=== PATIENT | female | born 1975 | race African-American/Black ===

== ENCOUNTER 2020-07-11 20:23 | Emergency (ER) | payer OTHER, SELFPAY ==
[2020-07-11 20:26] VITALS: BP 180/76; PULSE 103; RESP 18; TEMP 36.8; O2SAT 100
--- NOTE | 2020-07-11 20:37 | ED.GENADULT ---
HPI - General Adult General Chief complaint: Unspecified Stated complaint: painful breast lump Time Seen by Provider: 07/11/20 20:25 Source: patient Mode of arrival: ambulatory Limitations: no limitations History of Present Illness HPI narrative: Patient is a 45-year-old female who presents complaining of right breast pain x1 week. She reports mass to her right breast under the nipple, tender with palpation. Denies redness or drainage, denies drainage from nipple. She reports taking [id number] medications for pain without relief. MD complaint: Right breast pain Related Data Allergies Allergy/AdvReac Type Severity Reaction Status Date / Time codeine Allergy Unknown Hives / Verified 07/11/20 20:25 Red Face Review of Systems Review of Systems: Narrative: CONSTITUTIONAL: Denies fever, chills, or sweats. EYES: Denies visual changes, redness, or discharge. ENT: Denies rhinorrhea, congestion, sore throat, or otalgia. CARDIOVASCULAR: Denies chest pain, palpitations, or edema. RESPIRATORY: Denies cough or dyspnea. GASTROINTESTINAL: Denies abdominal pain, nausea, vomiting, or diarrhea. GENITOURINARY: Denies dysuria or hematuria. SKIN: Lump to right breast MUSCULOSKELETAL: Denies back pain, joint pain, or myalgia. NEUROLOGIC: Denies headache, numbness, dizziness, or weakness. PSYCHIATRIC: Denies anxiety or depression. PMFSH Past Medical History Medical History Asthma Bronchitis Cellulitis Pneumonia Surgical History Surgical History H/O: Family History Family History Other No significant family history Social History Social History (Updated 07/12/20 @ 10:35 by LELAND Duncan) Smoking status: Never smoker Alcohol intake: never Substance use: never Gender identity (if verbalized by the patient): Female Exam Narrative: Exam Narrative: GENERAL: Well-appearing, well-nourished, and in no acute distress. HEAD: Normocephalic, atraumatic. EYES: EOMI. No redness or drainage. ENT: Mucous membranes pink and moist. CHEST: No respiratory distress. HEART: Regular rate and rhythm. . MUSCULOSKELETAL: No bony tenderness. EXTREMITIES: Normal range of motion. No edema. SKIN: Palpable mass to right breast beneath nipple, tenderness patient, no discharge, erythema or edema noted NEURO: No focal deficits. Alert and oriented x3. Gait steady. PSYCH: Normal affect. No signs of depression or anxiety. Course Vital Signs Vital signs: Vital Signs Temperature 36.8 C 07/11/20 20:26 Pulse Rate 103 H 07/11/20 20:26 Respiratory Rate 18 07/11/20 20:26 Blood Pressure 180/76 H 07/11/20 20:26 Pulse Oximetry 100 07/11/20 20:26 Temperature 36.8 C 07/11/20 20:26 Pulse Rate 103 H 07/11/20 20:26 Respiratory Rate 18 07/11/20 20:26 Blood Pressure 180/76 H 07/11/20 20:26 Pulse Oximetry 100 07/11/20 20:26 Reviewed. Patient has been instructed to follow-up with her PCP regarding her blood pressure. Medical Decision Making MDM Narrative Medical decision making narrative: Patient has mass to right breast. Discussed with Dr. Jackson who also palpated mass. Patient to be referred to Dr. Lobato at this time, patient to take nSaids for pain. Patient is stable for discharge home with outpatient follow-up as discussed. Differential Diagnosis Differential Diagnosis: Breast mass, abscess, cellulitis, mastitis Vital Signs Vital Signs: Vital Signs Temperature 36.8 C 07/11/20 20:26 Pulse Rate 103 H 07/11/20 20:26 Respiratory Rate 18 07/11/20 20:26 Blood Pressure 180/76 H 07/11/20 20:26 Pulse Oximetry 100 07/11/20 20:26 Temperature 36.8 C 07/11/20 20:26 Pulse Rate 103 H 07/11/20 20:26 Respiratory Rate 18 07/11/20 20:26 Blood Pressure 180/76 H 07/11/20 20:26 Pulse Oximetry 100 07/11/20
== END 2020-07-11 21:11 | disposition home or self-care (01) ==
PROVIDERS: Emergency Provider Nurse Practitioner; PCP Nurse Practitioner Family
DX: N63.10 Unspecified lump in the right breast, unspecified quadrant (principal); J45.909 Unspecified asthma, uncomplicated
CPT/HCPCS: 99283